=== PATIENT | male | born 1970 | race American Indian/Alaskan Native ===

== ENCOUNTER 2020-11-02 10:38 | Inpatient (IN) | payer SELFPAY ==
[2020-11-02] MEDS ORDERED: ACETAMINOPHEN 325 MG TAB ONE (11:24)
--- NOTE | 2020-11-02 11:24 | Event Note ---
ED Screening Note ED Screening Note: pt presents for generalized weakness, cough, diarrhea that began a week ago has associated SOB, fever, sweats, chills states he does have mucus production no vomiting no CP PMHx none no allergies to meds +sick contact during thanksgiving with COVID 19 no recent travel non smoker This initial assessment/diagnostic orders/clinical plan/treatment(s) is/are subject to change based on patients health status, clinical progression and re- assessment by fellow clinical providers in the ED. Further treatment and workup at subsequent clinical providers discretion. Patient/guardian urged not to elope from the ED as their condition may be serious if not clinically assessed and managed. Initial orders include: hypoxia, febrile code sepsis initiated
[2020-11-02] MEDS ORDERED: SODIUM CHLORIDE 0.9% 1000 ML IV SOLN IV ONE (11:25)
[2020-11-02] MEDS ORDERED: ACETAMINOPHEN 325 MG TAB PO ONE (11:25)
[2020-11-02] MEDS ORDERED: dexAMETHasone 4 MG/ML VIAL IV ONE ×2 (11:26→16:00)
[2020-11-02] MEDS ORDERED: cefTRIAXone/NS 2 GM/100 ML 2 GM/100 ML BAG IV ONE (11:26)
[2020-11-02] MEDS ORDERED: AZITHROMYCIN 500 MG in SODIUM CHLORIDE 0.9% 250ML 250 ML IV ONE (12:00)
--- NOTE | 2020-11-02 12:39 | XRay Report ---
CHEST 2 VIEWS INDICATION / CLINICAL INFORMATION: SOB, cough, fever. COMPARISON: None available. FINDINGS: SUPPORT DEVICES: None. HEART / MEDIASTINUM: No significant abnormality. LUNGS / PLEURA: There are bilateral airspace opacities in the mid lower lung zones suspicious for pne umonia. No pneumothorax. ADDITIONAL FINDINGS: No significant additional findings. IMPRESSION: 1. There are bilateral parenchymal opacities suspicious for pneumonia. Signer Name: Tobin Carmona MD Signed: 11/02/2020 12:34 PM Workstation Name: [id number]
[2020-11-02 12:55] LABS: Basophils % (Auto) 0.3 % (0.0-1.8); Hematocrit 46.7 % (35.5-45.6); Hemoglobin 15.9 gm/dl (11.8-15.2); Lymphocytes # (Auto) 0.7 K/mm3 (1.2-5.4); Lymphocytes % (Auto) 10.8 % (13.4-35.0); Mean Corpuscular HGB Conc 34 % (32-34); Mean Corpuscular Volume 87 fl (84-94); Monocytes # (Auto) 0.3 K/mm3 (0.0-0.8); Monocytes % (Auto) 4.6 % (0.0-7.3); Platelet Count 215 K/mm3 (140-440); Red Blood Count 5.36 M/mm3 (3.65-5.03); Red Cell Distribution Width 13.6 % (13.2-15.2)
--- NOTE | 2020-11-02 13:09 | Emergency Department Report ---
HPI - General Chief Complaint: Dyspnea/Respdistress Time Seen by Provider: 11/02/20 11:23 - HPI HPI: Room 25 The patient is a 50-year-old male present with a chief complaint of weakness and shortness of breath. The patient states for approximately 1 week he has had for 2 diarrhea and dyspnea on exertion. Patient admits to cough with greenish- yellow sputum. Patient admits to subjective fever. Patient denies nausea vomiting. The patient states he lost his sense of taste and smell approximately 1 week ago but it resolved ED Past Medical Hx - Past Medical History Previous Medical History?: No - Surgical History Past Surgical History?: No - Family History Family history: no significant - Social History Smoking Status: Never Smoker Substance Use Type: None (Denies illicit drug use), Alcohol (Occasional) ED Review of Systems ROS: Stated complaint: SOB,WEAKNESS Other details as noted in HPI Constitutional: fever Eyes: denies: eye pain ENT: denies: throat pain Respiratory: cough, SOB with exertion Cardiovascular: dyspnea on exertion Endocrine: no symptoms reported Gastrointestinal: diarrhea. denies: nausea, vomiting Genitourinary: denies: dysuria Musculoskeletal: denies: back pain Neurological: denies: headache Physical Exam - Physical Exam Vital Signs: Vital Signs 11/02/20 11:19 Temperature 102.1 F H Pulse Rate 92 H Respiratory 24 Rate Blood Pressure 138/73 [Right] O2 Sat by Pulse 91 Oximetry Physical Exam: GENERAL: The patient is well-developed well-nourished male lying on stretcher not appearing to be in acute distress. [] HEENT: Normocephalic. Atraumatic. Extraocular motions are intact. Patient has moist mucous membranes. NECK: Supple. Trachea midline CHEST/LUNGS: Occasional faint crackle at the right base. There is no respiratory distress noted. HEART/CARDIOVASCULAR: Regular. There is no tachycardia. There is no gallop rub or murmur. ABDOMEN: Abdomen is soft, nontender. Patient has normal bowel sounds. There is no abdominal distention. SKIN: There is no rash. There is no edema. There is no diaphoresis. NEURO: The patient is awake, alert, and oriented. The patient is cooperative. The patient has normal speech MUSCULOSKELETAL: There is no evidence of acute injury. ED Course Vital Signs 11/02/20 11:19 Temperature 102.1 F H Pulse Rate 92 H Respiratory 24 Rate Blood Pressure 138/73 [Right] O2 Sat by Pulse 91 Oximetry ED Medical Decision Making - Lab Data Result diagrams: 11/02/20 11:55 11/02/20 11:55 Laboratory Tests 11/02/20 11/02/20 11/02/20 11:55 11:55 11:55 WBC 6.8 RBC 5.36 H Hgb 15.9 H Hct 46.7 H MCV 87 MCH 30 MCHC 34 RDW 13.6 Plt Count 215 Lymph % (Auto) 10.8 L [place] % (Auto) 4.6 Eos % (Auto) 0.0 Baso % (Auto) 0.3 Lymph # (Auto) 0.7 L [place] # (Auto) 0.3 Eos # (Auto) 0.0 Baso # (Auto) 0.0 Seg Neutrophils % 84.3 H Seg Neutrophils # 5.7 D-Dimer ABG pH ABG pCO2 ABG pO2 ABG HCO3 ABG O2 Saturation ABG O2 Content ABG Base Excess ABG Hemoglobin ABG Carboxyhemoglobin ABG Methemoglobin Oxyhemoglobin FiO2 Sodium 135 L Potassium 4.0 Chloride 99.7 Carbon Dioxide 23 Anion Gap 16 BUN 9 Creatinine 1.0 Estimated GFR > 60 BUN/Creatinine Ratio 9 Glucose 100 Lactic Acid 0.90 Calcium 8.9 Ferritin Total Bilirubin 0.90 AST 368 H ALT 526 H Alkaline Phosphatase 128 Lactate Dehydrogenase 768 H C-Reactive Protein 19.00 H Total Protein 8.0 Albumin 3.8 L Albumin/Globulin Ratio 0.9 Procalcitonin 11/02/20 11/02/20 11/02/20 11:55 11:55 11:55 WBC RBC Hgb Hct MCV MCH MCHC RDW Plt Count Lymph % (Auto) [place] % (Auto) Eos % (Auto) Baso % (Auto) Lymph # (Auto) [place] # (Auto) Eos # (Auto) Baso # (Auto) Seg Neutrophils % Seg Neutrophils # D-Dimer 811.49 H ABG pH ABG pCO2 ABG pO2 ABG HCO3 ABG O2 Saturation ABG O2 Content ABG Base Excess ABG Hemoglobin ABG Carboxyhemoglobin ABG Methemoglobin Oxyhemoglobin FiO2 Sodium Potassium Chloride Carbon Dioxide Anion Gap BUN Creatinine Estimated GFR BUN/Creatinine Ratio Glucose Lactic Acid Calcium Ferritin > 2000.0 H Total Bilirubin AST ALT Alkaline Phosphatase Lactate Dehydrogenase C-Reactive Protein Total Protein Albumin Albumin/Globulin Ratio Procalcitonin 0.27 11/02/20 13:25 WBC RBC Hgb Hct MCV MCH MCHC RDW Plt Count Lymph % (Auto) [place] % (Auto) Eos % (Auto) Baso % (Auto) Lymph # (Auto) [place] # (Auto) Eos # (Auto) Baso # (Auto) Seg Neutrophils % Seg Neutrophils # D-Dimer ABG pH 7.443 ABG pCO2 36.7 ABG pO2 98.7 H ABG HCO3 24.5 ABG O2 Saturation 97.6 ABG O2 Content 20.8 ABG Base Excess 0.8 ABG Hemoglobin 15.4 ABG Carboxyhemoglobin 1.4 ABG Methemoglobin 0.7 Oxyhemoglobin 95.6 FiO2 32 Sodium Potassium Chloride Carbon Dioxide Anion Gap BUN Creatinine Estimated GFR BUN/Creatinine Ratio Glucose Lactic Acid Calcium Ferritin Total Bilirubin AST ALT Alkaline Phosphatase Lactate Dehydrogenase C-Reactive Protein Total Protein Albumin Albumin/Globulin Ratio Procalcitonin - EKG Data -: EKG Interpreted by Me EKG shows normal: sinus rhythm Rate: normal - EKG Data When compared to previous EKG there are: previous EKG unavailable Interpretation: nonspecific ST-T wave mere (T wave inversion in lead III) - Radiology Data Radiology results: report reviewed (Chest x-ray), image reviewed (Chest x-ray) interpreted by me: Chest x-ray-right lower lobe infiltrate Findings [address] [address] XRay Report Signed Patient: HILARY PEREYRA MR#: [id number] : 1970 Acct:[id number] Age/Sex: 50 / M ADM Date: 11/02/20 Loc: ED Attending Dr: Ordering Physician: MARTIN MUNOZ Date of Service: 11/02/20 Procedure(s): XR chest routine 2V Accession Number(s): [id number] cc: MARTIN MUNOZ Fluoro Time In Minutes: CHEST 2 VIEWS INDICATION / CLINICAL INFORMATION: SOB, cough, fever. COMPARISON: None available. FINDINGS: SUPPORT DEVICES: None. HEART / MEDIASTINUM: No significant abnormality. LUNGS / PLEURA: There are bilateral airspace opacities in the mid lower lung zones suspicious for pneumonia. No pneumothorax. ADDITIONAL FINDINGS: No significant additional findings. IMPRESSION: 1. There are bilateral parenchymal opacities suspicious for pneumonia. Signer Name: Tobin Carmona MD Signed: 11/02/2020 12:34 PM Workstation Name: [id number] Transcribed By: SS Dictated By: Tobin Carmona MD Electronically Authenticated By: Tobin Carmona MD Signed Date/Time: 11/02/20 1234 DD/ 1234 TD/TT: - Differential Diagnosis Pneumonia, COVID-19, hypoxia Critical care attestation.: If time is entered above; I have spent that time in minutes in the direct care of this critically ill patient, excluding procedure time. ED Disposition Clinical Impression: Pneumonia, Hypoxia, Suspected COVID-19 virus infection Disposition: DC-09 OP ADMIT IP TO THIS HOSP Is pt being admited?: Yes Does the pt Need Aspirin: No Condition: Stable Instructions: Bacterial Pneumonia (ED) Time of Disposition: 14:12 (Hospitalist paged)
[2020-11-02 13:16] LABS: Alanine Aminotransferase 526 units/L (7-56); Albumin 3.8 g/dL (3.9-5); BUN/Creatinine Ratio 9; Blood Urea Nitrogen 9 mg/dL (9-20); Calcium 8.9 mg/dL (8.4-10.2); Hemolysis Index 78
[2020-11-02] MEDS ORDERED: SODIUM CHLORIDE 0.9% 500 ML 500 ML ONE (13:35)
[2020-11-02] MEDS ORDERED: SODIUM CHLORIDE 0.9% 1000 ML 3,000 ML ONE (13:35)
[2020-11-02 13:46] LABS: ABG Base Excess 0.8 mmol/L (-2.0-3.0); ABG HCO3 24.5 mmol/L (20.0-26.0); ABG Methemoglobin 0.7 % (0.0-1.5); ABG Oxygen Saturation 97.6 % (95.0-99.0); ABG PCO2 36.7 mm Hg; ABG PH 7.443 pH Units (7.350-7.450); ABG PO2 98.7 mm Hg (80.0-90.0)
[2020-11-02 16:56] LABS: Bilirubin,Urine NEG (Negative); Blood,Urine MOD (Negative); Color,Urine Amber (Yellow); Mucus,Urine FEW /HPF
--- NOTE | 2020-11-03 01:07 | History and Physical Report ---
History of Present Illness Date of examination: 11/02/20 Date of admission: 11/02/20 14:15 Chief complaint: Shortness of breath for 1 week Diarrhea for 3 days History of present illness: 50-year-old male presents with chief complaint of weakness and shortness of bea th for 1 week. Patient also has cough productive of yellow sputum. Fever is subjective. Denies nausea or vomiting. Has loss of taste and smell approximately 1 week ago but it is better now. Patient also has diarrhea for 2 days. Nearly resolved now. Exposure to coronavirus present. No significant past medical history. - Past Medical History Previous Medical History?: No - Surgical History Past Surgical History?: No - Family History Family history: no significant - Social History Smoking Status: Never Smoker Substance Use Type: None (Denies illicit drug use), Alcohol (Occasional) Review of Systems ROS: Stated complaint: SOB,WEAKNESS Other details as noted in HPI Constitutional: fever Eyes: denies: eye pain ENT: denies: throat pain Respiratory: cough, SOB with exertion Cardiovascular: dyspnea on exertion Endocrine: no symptoms reported Gastrointestinal: diarrhea. denies: nausea, vomiting Genitourinary: denies: dysuria Musculoskeletal: denies: back pain Neurological: denies: headache Medications and Allergies Allergies Allergy/AdvReac Type Severity Reaction Status Date / Time No Known Allergies Allergy Unverified 11/02/20 11:19 Exam - Constitutional Vitals: Temp Pulse Resp BP Pulse Ox 102.4 F H 83 18 152/57 95 11/02/20 23:32 11/02/20 23:32 11/02/20 23:32 11/02/20 23:32 11/02/20 23:37 General appearance: Present: no acute distress, well-nourished - EENT Eyes: Present: PERRL ENT: hearing intact, clear oral mucosa - Neck Neck: Present: supple, normal ROM - Respiratory Respiratory effort: normal Respiratory: bilateral: CTA - Cardiovascular Heart rate: 78 Rhythm: regular Heart Sounds: Present: S1 & S2. Absent: rub, click - Extremities Extremities: no ischemia, pulses intact, pulses symmetrical, No edema Peripheral Pulses: within normal limits - Abdominal General gastrointestinal: Present: soft, non-tender, non-distended, normal bowel sounds Male genitourinary: Present: normal - Rectal Rectal Exam: deferred - Integumentary Integumentary: Present: clear, warm, dry - Musculoskeletal Musculoskeletal: gait normal, strength equal bilaterally - Psychiatric Psychiatric: appropriate mood/affect, intact judgment & insight - Neurologic Neurologic: CNII-XII intact, moves all extremities - Allied Health Allied health notes reviewed: nursing, case management Results - Labs CBC & Chem 7: 11/02/20 11:55 11/02/20 11:55 Labs: Laboratory Last Values WBC 6.8 K/mm3 (4.5-11.0) 11/02/20 11:55 RBC 5.36 M/mm3 (3.65-5.03) H 11/02/20 11:55 Hgb 15.9 gm/dl (11.8-15.2) H 11/02/20 11:55 Hct 46.7 % (35.5-45.6) H 11/02/20 11:55 MCV 87 fl (84-94) 11/02/20 11:55 MCH 30 pg (28-32) 11/02/20 11:55 MCHC 34 % (32-34) 11/02/20 11:55 RDW 13.6 % (13.2-15.2) 11/02/20 11:55 Plt Count 215 K/mm3 (140-440) 11/02/20 11:55 Lymph % (Auto) 10.8 % (13.4-35.0) L 11/02/20 11:55 [place] % (Auto) 4.6 % (0.0-7.3) 11/02/20 11:55 Eos % (Auto) 0.0 % (0.0-4.3) 11/02/20 11:55 Baso % (Auto) 0.3 % (0.0-1.8) 11/02/20 11:55 Lymph # (Auto) 0.7 K/mm3 (1.2-5.4) L 11/02/20 11:55 [place] # (Auto) 0.3 K/mm3 (0.0-0.8) 11/02/20 11:55 Eos # (Auto) 0.0 K/mm3 (0.0-0.4) 11/02/20 11:55 Baso # (Auto) 0.0 K/mm3 (0.0-0.1) 11/02/20 11:55 Seg Neutrophils % 84.3 % (40.0-70.0) H 11/02/20 11:55 Seg Neutrophils # 5.7 K/mm3 (1.8-7.7) 11/02/20 11:55 D-Dimer 811.49 ng/mlDDU (0-234) H 11/02/20 11:55 ABG pH 7.443 pH Units (7.350-7.450) 11/02/20 13:25 ABG pCO2 36.7 mm Hg 11/02/20 13:25 ABG pO2 98.7 mm Hg (80.0-90.0) H 11/02/20 13:25 ABG HCO3 24.5 mmol/L (20.0-26.0) 11/02/20 13:25 ABG O2 Saturation 97.6 % (95.0-99.0) 11/02/20 13:25 ABG O2 Content 20.8 (0.0-44) 11/02/20 13:25 ABG Base Excess 0.8 mmol/L (-2.0-3.0) 11/02/20 13:25 ABG Hemoglobin 15.4 gm/dl (14.0-18.0) 11/02/20 13:25 ABG Carboxyhemoglobin 1.4 % (0.0-5.0) 11/02/20 13:25 ABG Methemoglobin 0.7 % (0.0-1.5) 11/02/20 13:25 Oxyhemoglobin 95.6 % (95.0-99.0) 11/02/20 13:25 FiO2 32 % 11/02/20 13:25 Sodium 135 mmol/L (137-145) L 11/02/20 11:55 Potassium 4.0 mmol/L (3.6-5.0) 11/02/20 11:55 Chloride 99.7 mmol/L (98-107) 11/02/20 11:55 Carbon Dioxide 23 mmol/L (22-30) 11/02/20 11:55 Anion Gap 16 mmol/L 11/02/20 11:55 BUN 9 mg/dL (9-20) 11/02/20 11:55 Creatinine 1.0 mg/dL (0.8-1.3) 11/02/20 11:55 Estimated GFR > 60 ml/min 11/02/20 11:55 BUN/Creatinine Ratio 9 % 11/02/20 11:55 Glucose 100 mg/dL (75-100) 11/02/20 11:55 Lactic Acid 0.90 mmol/L (0.7-2.0) 11/02/20 14:35 Calcium 8.9 mg/dL (8.4-10.2) 11/02/20 11:55 Ferritin > 2000.0 ng/mL (30.0-300.0) H 11/02/20 11:55 Total Bilirubin 0.90 mg/dL (0.1-1.2) 11/02/20 11:55 AST 368 units/L (5-40) H 11/02/20 11:55 ALT 526 units/L (7-56) H 11/02/20 11:55 Alkaline Phosphatase 128 units/L (35-129) 11/02/20 11:55 Lactate Dehydrogenase 768 units/L (91-180) H 11/02/20 11:55 C-Reactive Protein 19.00 mg/dL (0.00-1.30) H 11/02/20 11:55 Total Protein 8.0 g/dL (6.3-8.2) 11/02/20 11:55 Albumin 3.8 g/dL (3.9-5) L 11/02/20 11:55 Albumin/Globulin Ratio 0.9 % 11/02/20 11:55 Procalcitonin 0.27 ng/mL (<0.15) 11/02/20 11:55 Urine Color Pearl (Yellow) 11/02/20 Unknown Urine Turbidity Clear (Clear) 11/02/20 Unknown Urine pH 6.0 (5.0-7.0) 11/02/20 Unknown Ur Specific [place] 1.017 (1.003-1.030) 11/02/20 Unknown Urine Protein 100 mg/dl mg/dL (Negative) 11/02/20 Unknown Urine Glucose (UA) Neg mg/dL (Negative) 11/02/20 Unknown Urine Ketones Neg mg/dL (Negative) 11/02/20 Unknown Urine Blood Mod (Negative) 11/02/20 Unknown Urine Nitrite Neg (Negative) 11/02/20 Unknown Urine Bilirubin Neg (Negative) 11/02/20 Unknown Urine Urobilinogen 4.0 mg/dL (<2.0) 11/02/20 Unknown Ur Leukocyte Esterase Neg (Negative) 11/02/20 Unknown Urine WBC (Auto) 5.0 /HPF (0.0-6.0) 11/02/20 Unknown Urine RBC (Auto) 2.0 /HPF (0.0-6.0) 11/02/20 Unknown Urine Mucus Few /HPF 11/02/20 Unknown Short CBC 11/02/20 Range/Units 11:55 WBC 6.8 (4.5-11.0) K/mm3 Hgb 15.9 H (11.8-15.2) gm/dl Hct 46.7 H (35.5-45.6) % Plt Count 215 (140-440) K/mm3 BMP 11/02/20 11:55 Sodium 135 L Potassium 4.0 Chloride 99.7 Carbon Dioxide 23 BUN 9 Creatinine 1.0 Glucose 100 Calcium 8.9 Liver Function 11/02/20 Range/Units 11:55 Total Bilirubin 0.90 (0.1-1.2) mg/dL AST 368 H (5-40) units/L ALT 526 H (7-56) units/L Alkaline Phosphatase 128 (35-129) units/L Albumin 3.8 L (3.9-5) g/dL Urine 11/02/20 Range/Units Unknown Urine Color Pearl (Yellow) Urine pH 6.0 (5.0-7.0) Ur Specific [place] 1.017 (1.003-1.030) Urine Protein 100 mg/dl (Negative) mg/dL Urine Glucose (UA) Neg (Negative) mg/dL Microbiology: Microbiology 11/02/20 11:55 Peripheral/Venous Blood Culture - Preliminary Culture in Progress 11/02/20 11:55 Peripheral/Venous Blood Culture - Preliminary Culture in Progress - Imaging and Cardiology Imaging and Cardiology: Chest x-ray IMPRESSION: 1. There are bilateral parenchymal opacities suspicious for pneumonia. [place]/IV: Voiding Method Toilet IV Catheter Type [Left] Peripheral IV Assessment and Plan Advance Directives: Yes (Full code) VTE prophylaxis?: Chemical Plan of care discussed with patient/family: Yes - Patient Problems (1) Acute respiratory failure with hypoxia Current Visit: Yes Status: Acute Plan to address problem: Patient has low oxygen levels on room air Continue oxygen supplementation as necessary Monitor closely (2) Suspected COVID-19 virus infection Current Visit: Yes Status: Acute Plan to address problem: Coronavirus PCR ordered Inflammatory markers are requested ID consult requested for possible remdesivir therapy Patient initiated on IV Decadron (3) Bilateral pneumonia Current Visit: Yes Status: Acute Qualifiers: Pneumonia type: due to unspecified organism Plan to address problem: Patient being treated as community-acquired pneumonia Patient on Zithromax and Rocephin IV Decadron 8 mg every 24 hours (4) Polycythemia due to fall in plasma volume Current Visit: Yes Status: Acute Plan to address problem: Increase oral fluids (5) DVT prophylaxis Current Visit: Yes Status: Acute Plan to address problem: Patient on Lovenox and GI prophylaxis
[2020-11-03] MEDS ORDERED: HYDROmorphone 1 MG/1 ML INJ IV PRN (01:29)
[2020-11-03] MEDS ORDERED: METOCLOPRAMIDE 10 MG/2 ML INJ IV PRN (01:29)
[2020-11-03] MEDS ORDERED: ACETAMINOPHEN 325 MG TAB PO PRN (01:29)
[2020-11-03] MEDS ORDERED: oxyCODONE /ACETAMINOPHEN 5-325MG TAB PO PRN (01:29)
[2020-11-03] MEDS ORDERED: ONDANSETRON 4 MG/2 ML INJ IV PRN (01:29)
[2020-11-03] MEDS: FAMOTIDINE 20 MG TAB PO SCH ×2 (09:38→22:54)
[2020-11-03] MEDS: CHOLECALCIFEROL (VIT D3) 5,000 UNIT TAB PO SCH (09:41)
[2020-11-03] MEDS ORDERED: cefTRIAXone/NS 2 GM/100 ML 2 GM/100 ML BAG IV SCH (10:00)
[2020-11-03] MEDS ORDERED: AZITHROMYCIN 500 MG in SODIUM CHLORIDE 0.9% 250ML 250 ML IV SCH (10:00)
[2020-11-03] MEDS: DEXAMETHASONE 2 MG TAB PO SCH ×2 (13:56→22:54)
--- NOTE | 2020-11-03 14:27 | Consultation ---
History of Present Illness - Reason for Consult Consult date: 11/03/20 COVID-19 Requesting physician: JARON JULIAN - History of Present Illness 51 years old male without any significant medical history, admitted on 11/02/2020 secondary to a week history of generalized weakness, cough with yellowish sputum production, intermittent diarrhea, loss of smell and taste and shortness of breath. Patient had recent exposure to COVID-19. On arrival, temperature 102, HR 92, RR 29, O2 sat 91%, BP 138/73. Initial WBC 6.8. Platelets 215. D-dimer 811. Ferritin> 2000. AST 368. ALT 526. CRP 19. Procalcitonin 0.2. Urinalysis negative. Chest x-ray shows bilateral airspace disease. Review of Systems: reviewed ED and H&P notes. Deferred to prevent COVID-19 transmission. Medications and Allergies Allergies Allergy/AdvReac Type Severity Reaction Status Date / Time No Known Allergies Allergy Unverified 11/02/20 11:19 Active Meds: Active Medications Acetaminophen (Acetaminophen 325 Mg Tab) 650 mg PO Q4H PRN PRN Reason: Pain MILD(1-3)/Fever >100.5/KRUGER Cholecalciferol (Cholecalciferol (Vit D3) 5,000 Unit Tab) 5,000 unit PO QDAY [facility] Last Admin: 11/03/20 09:41 Dose: 5,000 unit Documented by: Dexamethasone (Dexamethasone 2 Mg Tab) 2 mg PO Q8HR [facility] Last Admin: 11/03/20 13:56 Dose: 2 mg Documented by: Enoxaparin Sodium (Enoxaparin 40 Mg/0.4 Ml Inj) 40 mg SUB-Q QDAY@2200 [facility]; Protocol Famotidine (Famotidine 20 Mg Tab) 20 mg PO BID [facility] Last Admin: 11/03/20 09:38 Dose: 20 mg Documented by: Hydromorphone HCl (Hydromorphone 1 Mg/1 Ml Inj) 0.5 mg IV Q3H PRN PRN Reason: Pain , Severe (7-10) Azithromycin 500 mg/ Sodium (Chloride) 250 mls @ 250 mls/hr IV Q24HR [facility]; Protocol Last Admin: 11/03/20 09:40 Dose: 250 mls/hr Documented by: Ceftriaxone Sodium (Rocephin/Ns 2 Gm/100 Ml) 2 gm in 100 mls @ 200 mls/hr IV Q24HR [facility]; Protocol Last Admin: 11/03/20 09:38 Dose: 200 mls/hr Documented by: Metoclopramide HCl (Metoclopramide 10 Mg/2 Ml Inj) 10 mg IV Q6H PRN PRN Reason: Nausea And Vomiting Ondansetron HCl (Ondansetron 4 Mg/2 Ml Inj) 4 mg IV Q8H PRN PRN Reason: Nausea And Vomiting Oxycodone/Acetaminophen (Oxycodone /Acetaminophen 5-325mg Tab) 1 tab PO Q6H PRN PRN Reason: Pain, Moderate (4-6) Sodium Chloride (Sodium Chloride 0.9% 10 Ml Flush Syringe) 10 ml IV BID [facility] Last Admin: 11/03/20 09:40 Dose: 10 ml Documented by: Sodium Chloride (Sodium Chloride 0.9% 10 Ml Flush Syringe) 10 ml IV PRN PRN PRN Reason: LINE FLUSH Physical Examination - Physical Exam Narrative exam: Physical Exam: reviewed ED and hospitalist notes. Deferred to prevent COVID-19 transmission. - Constitutional Vitals: Vital Signs Temp Pulse Resp BP Pulse Ox 97.7 F 67 18 146/80 97 11/03/20 03:59 11/03/20 03:59 11/03/20 03:59 11/03/20 03:59 11/03/20 03:59 Temperature -Last 24 Hours Temperature 97.7 F Temperature 102.4 F Results - Labs CBC & Chem 7: 11/02/20 11:55 11/02/20 11:55 Assessment and Plan Cultures: Blood culture 11/02/2020 pending SARS CoV2 PCR pending Assessment: 51 years old male without any significant medical history, admitted on 11/02/2020 secondary to a week history of generalized weakness, cough with yellowish sputum production, intermittent diarrhea, loss of smell and taste and shortness of breath: #Acute sepsis: Present on admission with fever, tachycardia, hypoxia; likely secondary to bilateral pneumonia. #Bilateral pneumonia: Likely secondary to COVID-19, patient with recent exposure to COVID-19. PCR pending. Inflammatory markers elevated, ferritin> 2000, D- dimer 811. #Acute hypoxia: Initial sats dropped to 91%, patient currently on 2 L nasal cannula. #Transaminitis: Likely secondary to sepsis, possibly secondary to COVID-19. AST 368, ALT 526. LFTs level usually higher than typical Covid-related transaminitis. #Acute diarrhea: Possible secondary to COVID-19. Recommendations: -Follow-up SARS-CoV-2 PCR -Start Dexamethasone 6 mg IV/PO daily for 10 days -If SARS-CoV-2 PCR is positive please start remdesivir total 5 days -Monitor inflammatory markers - ferritin, Ddimer, CRP, LDH -Stop ceftriaxone and azithromycin, procalcitonin <0.25 ng/mL -Continue anticoagulation per System Protocol -Obtain right upper quadrant ultrasound in light of high LFTs. -Obtain venous ultrasound rule out DVTs All laboratory, cultures and imaging were reviewed. Will follow Hortencia Olsen MD Infectious Diseases [employer] [facility] M [phone] O [phone]
--- NOTE | 2020-11-03 17:30 | Progress Note ---
Assessment and Plan -- Acute respiratory failure with hypoxia from COVID 19 PNA Patient has low oxygen levels on room air Continue oxygen supplementation as necessary Monitor closely -- COVID-19 virus infection Coronavirus PCR ordered and positive follow Inflammatory markers ID consult, ordered for remdesivir therapy Patient initiated on IV Decadron Positive for anticovid antibody - no need for convalescent plasma -- Bilateral pneumonia stop Zithromax and Rocephin as procalcitonin normal treat for COVID 19 IV Decadron 8 mg every 24 hours -- Polycythemia due to fall in plasma volume Increase oral fluids -- DVT prophylaxis Patient on Lovenox and GI prophylaxis Brief History: 51 years old male without any significant medical history, admitted on 11/02/2020 secondary to a week history of generalized weakness, cough with yellowish sputum production, intermittent diarrhea, loss of smell and taste and shortness of breath. Patient had recent exposure to COVID-19. On arrival, Chest x-ray shows bilateral airspace disease. COVID 19 test positive. 11/03: Postive for covid19. follow Inflammatory markers, ID consulted, ordered for remdesivir therapy. Patient initiated on IV Decadron. Subjective Date of service: 11/03/20 Interval history: Patient seen and examined positive for COVID 19 c/o SOB on exertion AND COUGH, on 2L N/C Denies any chest pain Objective - Constitutional General appearance: Present: no acute distress, obese - EENT Eyes: PERRL, EOM intact ENT: hearing intact, clear oral mucosa Ears: bilateral: normal - Neck Neck: supple, normal ROM - Respiratory Respiratory effort: normal Respiratory: bilateral: rales - Breasts Breasts: normal - Cardiovascular Rhythm: regular Heart Sounds: Present: S1 & S2. Absent: gallop, rub Extremities: pulses intact, No edema, normal color, Full ROM - Gastrointestinal General gastrointestinal: Present: soft, non-tender, non-distended, normal bowel sounds - Integumentary Integumentary: clear, warm, dry - Musculoskeletal Musculoskeletal: 1, strength equal bilaterally - Neurologic Neurologic: moves all extremities - Psychiatric Psychiatric: memory intact, appropriate mood/affect, intact judgment & insight - Labs CBC & Chem 7: 11/02/20 11:55 11/02/20 11:55 Labs: Abnormal lab results 11/03/20 Range/Units Unknown Coronavirus (PCR) Positive A (Negative) - Imaging and cardiology Chest x-ray: report reviewed
[2020-11-03] MEDS ORDERED: REMDESIVIR 200 MG in SODIUM CHLORIDE 0.9% 250ML 250 ML IV ONE ×2 (18:00→20:00)
[2020-11-03] MEDS ORDERED: SODIUM CHLORIDE 0.9% 50 ML IVPB IV SCH (18:00)
[2020-11-03] MEDS ORDERED: REMDESIVIR 100 MG VIAL IV ONE (20:00)
[2020-11-03] MEDS: SODIUM CHLORIDE 0.9% 50 ML IVPB IV SCH ×2 (22:53→22:55)
[2020-11-03] MEDS: ASCORBIC ACID 500 MG TAB PO SCH (22:54)
[2020-11-03] MEDS: ZINC SULFATE 220 MG CAP PO SCH (22:54)
[2020-11-03] MEDS: ENOXAPARIN 40 MG/0.4 ML INJ SUB-Q SCH (22:54)
[2020-11-04] MEDS: DEXAMETHASONE 2 MG TAB PO SCH ×3 (05:09→21:39)
[2020-11-04 06:32] LABS: Basophils % (Auto) 0.2 % (0.0-1.8); Eosinophils % (Auto) 0.1 % (0.0-4.3); Hematocrit 40.3 % (35.5-45.6); Hemoglobin 13.5 gm/dl (11.8-15.2); Lymphocytes # (Auto) 0.6 K/mm3 (1.2-5.4); Lymphocytes % (Auto) 10.2 % (13.4-35.0); Mean Corpuscular HGB Conc 33 % (32-34); Mean Corpuscular Volume 87 fl (84-94); Monocytes # (Auto) 0.3 K/mm3 (0.0-0.8); Monocytes % (Auto) 5.1 % (0.0-7.3); Platelet Count 249 K/mm3 (140-440); Red Blood Count 4.62 M/mm3 (3.65-5.03); Red Cell Distribution Width 13.7 % (13.2-15.2)
[2020-11-04 06:54] LABS: Alanine Aminotransferase 254 units/L (7-56); Albumin 3.2 g/dL (3.9-5); BUN/Creatinine Ratio 11; Blood Urea Nitrogen 11 mg/dL (9-20); Calcium 8.5 mg/dL (8.4-10.2); Hemolysis Index 5
--- NOTE | 2020-11-04 09:23 | Progress Note ---
Assessment and Plan Cultures: Blood culture 11/02/2020 pending SARS CoV2 PCR positive SARS CoV2 IgG positive Assessment: 51 years old male without any significant medical history, admitted on 11/02/2020 secondary to a week history of generalized weakness, cough with yellowish sputum production, intermittent diarrhea, loss of smell and taste and shortness of breath: #Acute sepsis: Present on admission with fever, tachycardia, hypoxia; likely secondary to bilateral pneumonia. #Severe COVID pneumonia: patient with recent exposure to COVID-19. Inflammatory markers elevated, ferritin> 2000, D-dimer 811. #Acute hypoxia: Initial sats dropped to 91%, patient currently on 2 L nasal cannula. #Transaminitis: Likely secondary to sepsis, possibly secondary to COVID-19. AST 368, ALT 526. LFTs level usually higher than typical Covid-related transaminitis. Improving. #Acute diarrhea: Possible secondary to COVID-19. Recommendations: -Continue Dexamethasone 6 mg IV/PO daily for 10 days D2 of 10 -Continue remdesivir total 5 days -Monitor inflammatory markers - ferritin, Ddimer, CRP, LDH today -No indication for COVID convalescence plasma as pt is seropositive -Continue anticoagulation per System Protocol -Obtain right upper quadrant ultrasound in light of high LFTs- pending -Obtain venous ultrasound rule out DVTs - pending All laboratory, cultures and imaging were reviewed. Will follow Hortencia Olsen MD Infectious Diseases Certified [employer] [facility] ([facility]) M [phone] O [phone] Subjective Date of service: 11/04/20 Principal diagnosis: COVID Interval history: Remains on 2L Objective - Constitutional Vitals: Vital Signs Temp Pulse Resp BP Pulse Ox 97.9 F 71 16 141/75 96 11/04/20 05:16 11/04/20 05:16 11/04/20 05:16 11/04/20 05:16 11/04/20 05:16 Temperature -Last 24 Hours Temperature 97.9 F Temperature 97.9 F Temperature 102.5 F - Labs CBC & Chem 7: 11/04/20 05:53 11/04/20 05:53 Labs: Abnormal lab results 11/03/20 11/03/20 11/04/20 Range/Units 18:50 Unknown 05:53 Lymph % (Auto) 10.2 L (13.4-35.0) % Lymph # (Auto) 0.6 L (1.2-5.4) K/mm3 Seg Neutrophils % 84.4 H (40.0-70.0) % Sodium (137-145) mmol/L Glucose (75-100) mg/dL AST (5-40) units/L ALT (7-56) units/L Albumin (3.9-5) g/dL Coronavirus (PCR) Positive A (Negative) SARS-CoV-2 IgG Ab Reactive A (NonReactive) 11/04/20 Range/Units 05:53 Lymph % (Auto) (13.4-35.0) % Lymph # (Auto) (1.2-5.4) K/mm3 Seg Neutrophils % (40.0-70.0) % Sodium 136 L (137-145) mmol/L Glucose 104 H (75-100) mg/dL AST 83 H (5-40) units/L ALT 254 H (7-56) units/L Albumin 3.2 L (3.9-5) g/dL Coronavirus (PCR) (Negative) SARS-CoV-2 IgG Ab (NonReactive)
--- NOTE | 2020-11-04 09:57 | Progress Note ---
Assessment and Plan Acute respiratory failure with hypoxia from COVID 19 PNA continues to improve significantly expect discharge 1 to 2 days Continue oxygen supplementation as necessary Monitor closely -- COVID-19 virus infection Coronavirus PCR ordered and positive follow Inflammatory markers ID consult, remdesivir therapy Patient initiated on IV Decadron Positive for anticovid antibody - no need for convalescent plasma -- Bilateral pneumonia Antibiotics discontinued as procalcitonin normal treat for COVID 19 IV Decadron 8 mg every 24 hours will change to po -- Polycythemia due to fall in plasma volume Increase oral fluids -Continue Dexamethasone 6 mg IV/PO daily for 10 days -Continue remdesivir total 4 of 5 days -Monitor inflammatory markers - ferritin, Ddimer, CRP, LDH today -No indication for COVID convalescence plasma as pt is seropositive -Transaminases have returned to normal. -Obtain venous ultrasound rule out DVTs - pending Subjective Date of service: 11/04/20 Principal diagnosis: COVID Interval history: Patient breathing much better today. Currently on 3 L of oxygen. Patient can get up go to the bathroom but out coming extremely hypoxic. Patient would not able to do that 2 days ago. Plan will be tomorrow to start patient to get up and walk and see if he can tolerate home on 3 L of O2. Will anticipate discharge in the next 1 to 2 days. Objective - Constitutional Vitals: Vital Signs - 12hr 11/03/20 11/03/20 11/04/20 22:00 22:40 05:16 Temperature 97.9 F 97.9 F Pulse Rate 56 L 71 Pulse Rate [ 56 L Right Brachial] Respiratory 18 18 16 Rate Blood Pressure 140/66 141/75 O2 Sat by Pulse 98 98 96 Oximetry General appearance: Present: mild distress - EENT Eyes: PERRL, EOM intact ENT: hearing intact, clear oral mucosa Ears: bilateral: normal - Neck Neck: supple, normal ROM - Respiratory Respiratory effort: normal Respiratory: bilateral: CTA - Breasts Breasts: normal - Cardiovascular Rhythm: regular Heart Sounds: Present: S1 & S2. Absent: gallop, rub Extremities: pulses intact, No edema, normal color, Full ROM - Gastrointestinal General gastrointestinal: Present: soft, non-tender, non-distended, normal bowel sounds - Genitourinary Male genitourinary: normal - Integumentary Integumentary: clear, warm, dry - Musculoskeletal Musculoskeletal: 1, strength equal bilaterally - Neurologic Neurologic: moves all extremities - Psychiatric Psychiatric: memory intact, appropriate mood/affect, intact judgment & insight - Labs CBC & Chem 7: 11/04/20 05:53 11/04/20 13:47 Labs: Abnormal lab results 11/03/20 11/03/20 11/04/20 Range/Units 18:50 Unknown 05:53 Lymph % (Auto) 10.2 L (13.4-35.0) % Lymph # (Auto) 0.6 L (1.2-5.4) K/mm3 Seg Neutrophils % 84.4 H (40.0-70.0) % Sodium (137-145) mmol/L Glucose (75-100) mg/dL AST (5-40) units/L ALT (7-56) units/L Albumin (3.9-5) g/dL Coronavirus (PCR) Positive A (Negative) SARS-CoV-2 IgG Ab Reactive A (NonReactive) 11/04/20 Range/Units 05:53 Lymph % (Auto) (13.4-35.0) % Lymph # (Auto) (1.2-5.4) K/mm3 Seg Neutrophils % (40.0-70.0) % Sodium 136 L (137-145) mmol/L Glucose 104 H (75-100) mg/dL AST 83 H (5-40) units/L ALT 254 H (7-56) units/L Albumin 3.2 L (3.9-5) g/dL Coronavirus (PCR) (Negative) SARS-CoV-2 IgG Ab (NonReactive)
[2020-11-04] MEDS: ASCORBIC ACID 500 MG TAB PO SCH ×2 (10:33→21:40)
[2020-11-04] MEDS: CHOLECALCIFEROL (VIT D3) 5,000 UNIT TAB PO SCH (10:33)
[2020-11-04] MEDS: FAMOTIDINE 20 MG TAB PO SCH ×2 (10:33→21:40)
[2020-11-04] MEDS: ZINC SULFATE 220 MG CAP PO SCH ×2 (10:33→21:40)
[2020-11-04 15:27] LABS: BUN/Creatinine Ratio 12; Blood Urea Nitrogen 12 mg/dL (9-20); Calcium 8.4 mg/dL (8.4-10.2); Hemolysis Index 0
[2020-11-04] MEDS: guaiFENesin ER 600 MG TAB PO SCH (21:38)
[2020-11-04] MEDS: ENOXAPARIN 40 MG/0.4 ML INJ SUB-Q SCH (21:39)
[2020-11-04] MEDS: REMDESIVIR 100 MG in SODIUM CHLORIDE 0.9% 250ML 250 ML IV SCH (21:39)
[2020-11-04] MEDS: SODIUM CHLORIDE 0.9% 50 ML IVPB IV SCH (21:39)
[2020-11-05] MEDS: DEXAMETHASONE 2 MG TAB PO SCH ×3 (05:21→22:36)
--- NOTE | 2020-11-05 07:39 | Progress Note ---
Assessment and Plan Assessment and plan: Acute respiratory failure with hypoxia from COVID 19 PNA continues to improve significantly expect discharge 1 to 2 days Continue oxygen supplementation as necessary Monitor closely -- COVID-19 virus infection Coronavirus PCR ordered and positive follow Inflammatory markers ID consult, remdesivir therapy Patient initiated on IV Decadron Positive for anticovid antibody - no need for convalescent plasma -- Bilateral pneumonia Antibiotics discontinued as procalcitonin normal treat for COVID 19 IV Decadron 8 mg every 24 hours will change to po -- Polycythemia due to fall in plasma volume Increase oral fluids -Continue Dexamethasone 6 mg IV/PO daily for 10 days -Continue remdesivir total 2 of 5 days -Monitor inflammatory markers - ferritin, Ddimer, CRP, LDH today -No indication for COVID convalescence plasma as pt is seropositive -Transaminases have returned to normal. -Obtain venous ultrasound rule out DVTs - pending 11/05/2020 -Patient is on IV dexamethasone, remdesivir day 2 out of 5, patient is on intranasal oxygen, ID is following and recommend to get inflammatory markers, venous Doppler and right upper quadrant ultrasound -Patient is doing well he is on 3 L of intranasal oxygen. History Interval history: Patient was seen and evaluated at the bedside Patient is requiring 3 L of [place] oxygen Hospitalist Physical - Physical exam Narrative exam: Not in cardiopulmonary distress. The patient appeared well nourished and normally developed. Vital signs as documented. Head exam is unremarkable. No scleral icterus . Neck is without jugular venous distension, thyromegaly, or carotid bruits. Lungs are clear to auscultation. Cardiac exam reveals regular rate and Rhythm. Abdominal exam reveals normal bowel sounds, nontender, no organomegaly. Extremities are nonedematous and both femoral and pedal pulses are normal. PT ESCORT: Alert and oriented 3. No focal weakness. - Constitutional Vitals: Temp Pulse Resp BP Pulse Ox 98.7 F 60 20 136/75 88 11/05/20 04:54 11/05/20 04:54 11/05/20 04:54 11/05/20 04:54 11/05/20 04:54 General appearance: Present: mild distress Results - Labs CBC & Chem 7: 11/04/20 05:53 11/04/20 13:47 Labs: Laboratory Last Values WBC 6.4 K/mm3 (4.5-11.0) 11/04/20 05:53 RBC 4.62 M/mm3 (3.65-5.03) 11/04/20 05:53 Hgb 13.5 gm/dl (11.8-15.2) 11/04/20 05:53 Hct 40.3 % (35.5-45.6) D 11/04/20 05:53 MCV 87 fl (84-94) 11/04/20 05:53 MCH 29 pg (28-32) 11/04/20 05:53 MCHC 33 % (32-34) 11/04/20 05:53 RDW 13.7 % (13.2-15.2) 11/04/20 05:53 Plt Count 249 K/mm3 (140-440) 11/04/20 05:53 Lymph % (Auto) 10.2 % (13.4-35.0) L 11/04/20 05:53 [place] % (Auto) 5.1 % (0.0-7.3) 11/04/20 05:53 Eos % (Auto) 0.1 % (0.0-4.3) 11/04/20 05:53 Baso % (Auto) 0.2 % (0.0-1.8) 11/04/20 05:53 Lymph # (Auto) 0.6 K/mm3 (1.2-5.4) L 11/04/20 05:53 [place] # (Auto) 0.3 K/mm3 (0.0-0.8) 11/04/20 05:53 Eos # (Auto) 0.0 K/mm3 (0.0-0.4) 11/04/20 05:53 Baso # (Auto) 0.0 K/mm3 (0.0-0.1) 11/04/20 05:53 Seg Neutrophils % 84.4 % (40.0-70.0) H 11/04/20 05:53 Seg Neutrophils # 5.4 K/mm3 (1.8-7.7) 11/04/20 05:53 D-Dimer 811.49 ng/mlDDU (0-234) H 11/02/20 11:55 ABG pH 7.443 pH Units (7.350-7.450) 11/02/20 13:25 ABG pCO2 36.7 mm Hg 11/02/20 13:25 ABG pO2 98.7 mm Hg (80.0-90.0) H 11/02/20 13:25 ABG HCO3 24.5 mmol/L (20.0-26.0) 11/02/20 13:25 ABG O2 Saturation 97.6 % (95.0-99.0) 11/02/20 13:25 ABG O2 Content 20.8 (0.0-44) 11/02/20 13:25 ABG Base Excess 0.8 mmol/L (-2.0-3.0) 11/02/20 13:25 ABG Hemoglobin 15.4 gm/dl (14.0-18.0) 11/02/20 13:25 ABG Carboxyhemoglobin 1.4 % (0.0-5.0) 11/02/20 13:25 ABG Methemoglobin 0.7 % (0.0-1.5) 11/02/20 13:25 Oxyhemoglobin 95.6 % (95.0-99.0) 11/02/20 13:25 FiO2 32 % 11/02/20 13:25 Sodium 139 mmol/L (137-145) 11/04/20 13:47 Potassium 4.5 mmol/L (3.6-5.0) 11/04/20 13:47 Chloride 101.8 mmol/L (98-107) 11/04/20 13:47 Carbon Dioxide 29 mmol/L (22-30) 11/04/20 13:47 Anion Gap 13 mmol/L 11/04/20 13:47 BUN 12 mg/dL (9-20) 11/04/20 13:47 Creatinine 1.0 mg/dL (0.8-1.3) 11/04/20 13:47 Estimated GFR > 60 ml/min 11/04/20 13:47 BUN/Creatinine Ratio 12 % 11/04/20 13:47 Glucose 132 mg/dL (75-100) H 11/04/20 13:47 Hemoglobin A1c 5.9 % (4-6) 11/02/20 11:55 Lactic Acid 0.90 mmol/L (0.7-2.0) 11/02/20 14:35 Calcium 8.4 mg/dL (8.4-10.2) 11/04/20 13:47 Ferritin > 2000.0 ng/mL (30.0-300.0) H 11/02/20 11:55 Total Bilirubin 0.50 mg/dL (0.1-1.2) 11/04/20 05:53 AST 83 units/L (5-40) H 11/04/20 05:53 ALT 254 units/L (7-56) H 11/04/20 05:53 Alkaline Phosphatase 107 units/L (35-129) 11/04/20 05:53 Lactate Dehydrogenase 768 units/L (91-180) H 11/02/20 11:55 C-Reactive Protein 19.00 mg/dL (0.00-1.30) H 11/02/20 11:55 Total Protein 6.9 g/dL (6.3-8.2) 11/04/20 05:53 Albumin 3.2 g/dL (3.9-5) L 11/04/20 05:53 Albumin/Globulin Ratio 0.9 % 11/04/20 05:53 Procalcitonin 0.27 ng/mL (<0.15) 11/02/20 11:55 Urine Color Pearl (Yellow) 11/02/20 Unknown Urine Turbidity Clear (Clear) 11/02/20 Unknown Urine pH 6.0 (5.0-7.0) 11/02/20 Unknown Ur Specific [place] 1.017 (1.003-1.030) 11/02/20 Unknown Urine Protein 100 mg/dl mg/dL (Negative) 11/02/20 Unknown Urine Glucose (UA) Neg mg/dL (Negative) 11/02/20 Unknown Urine Ketones Neg mg/dL (Negative) 11/02/20 Unknown Urine Blood Mod (Negative) 11/02/20 Unknown Urine Nitrite Neg (Negative) 11/02/20 Unknown Urine Bilirubin Neg (Negative) 11/02/20 Unknown Urine Urobilinogen 4.0 mg/dL (<2.0) 11/02/20 Unknown Ur Leukocyte Esterase Neg (Negative) 11/02/20 Unknown Urine WBC (Auto) 5.0 /HPF (0.0-6.0) 11/02/20 Unknown Urine RBC (Auto) 2.0 /HPF (0.0-6.0) 11/02/20 Unknown Urine Mucus Few /HPF 11/02/20 Unknown Coronavirus (PCR) Positive (Negative) A 11/03/20 Unknown SARS-CoV-2 IgG Ab Reactive (NonReactive) A 11/03/20 18:50 Microbiology: Microbiology 11/02/20 11:55 Peripheral/Venous Blood Culture - Preliminary NO GROWTH AFTER 48 HOURS 11/02/20 11:55 Peripheral/Venous Blood Culture - Preliminary NO GROWTH AFTER 48 HOURS [place]/IV: Voiding Method Toilet IV Catheter Type [Left] Peripheral IV Active Medications - Current Medications Current Medications: Generic Name Dose Route Start Last Admin Trade Name Freq PRN Reason Stop Dose Admin Acetaminophen 650 mg 11/03/20 01:29 11/03/20 17:37 Acetaminophen 325 Mg Tab PO 650 mg Q4H PRN Administration Pain MILD(1-3)/Fever >100.5/KRUGER Ascorbic Acid 1,000 mg 11/03/20 22:00 11/04/20 21:40 Ascorbic Acid 500 Mg Tab PO 1,000 mg BID CHANDAN Administration Cholecalciferol 5,000 unit 11/03/20 10:00 11/04/20 10:33 Cholecalciferol (Vit D3) 5,000 Unit Tab PO 5,000 unit QDAY CHANDAN Administration Dexamethasone 2 mg 11/03/20 14:00 11/05/20 05:21 Dexamethasone 2 Mg Tab PO 2 mg Q8HR CHANDAN Administration Enoxaparin Sodium 40 mg 11/03/20 22:00 11/04/20 21:39 Enoxaparin 40 Mg/0.4 Ml Inj SUB-Q 40 mg QDAY@2200 CHANDAN Administration Protocol Famotidine 20 mg 11/03/20 10:00 11/04/20 21:40 Famotidine 20 Mg Tab PO 20 mg BID CHANDAN Administration Guaifenesin 600 mg 11/04/20 22:00 11/04/20 21:38 Guaifenesin Er 600 Mg Tab PO 600 mg BID CHANDAN Administration Hydromorphone HCl 0.5 mg 11/03/20 01:29 Hydromorphone 1 Mg/1 Ml Inj IV Q3H PRN Pain , Severe (7-10) REMDESIVIR 100 mg/ Sodium 250 mls @ 500 mls/hr 11/04/20 21:00 11/04/20 21:39 Chloride IV 11/07/20 21:29 500 mls/hr Q24HR@2100 CHANDAN Administration Metoclopramide HCl 10 mg 11/03/20 01:29 Metoclopramide 10 Mg/2 Ml Inj IV Q6H PRN Nausea And Vomiting Ondansetron HCl 4 mg 11/03/20 01:29 Ondansetron 4 Mg/2 Ml Inj IV Q8H PRN Nausea And Vomiting Oxycodone/Acetaminophen 1 tab 11/03/20 01:29 Oxycodone /Acetaminophen 5-325mg Tab PO Q6H PRN Pain, Moderate (4-6) Sodium Chloride 10 ml 11/03/20 10:00 11/04/20 21:40 Sodium Chloride 0.9% 10 Ml Flush Syringe IV 10 ml BID CHANDAN Administration Sodium Chloride 10 ml 11/03/20 01:29 Sodium Chloride 0.9% 10 Ml Flush Syringe IV PRN PRN LINE FLUSH Sodium Chloride 50 ml 11/03/20 20:00 11/04/20 21:39 Sodium Chloride 0.9% 50 Ml Ivpb IV 11/06/20 21:01 50 ml Q24HR@2100 CHANDAN Administration Zinc Sulfate 220 mg 11/03/20 22:00 11/04/20 21:40 Zinc Sulfate 220 Mg Cap PO 220 mg BID CHANDAN Administration
[2020-11-05] MEDS: ZINC SULFATE 220 MG CAP PO SCH ×2 (09:51→22:35)
[2020-11-05] MEDS: ASCORBIC ACID 500 MG TAB PO SCH ×2 (09:51→22:36)
[2020-11-05] MEDS: CHOLECALCIFEROL (VIT D3) 5,000 UNIT TAB PO SCH (09:51)
[2020-11-05] MEDS: guaiFENesin ER 600 MG TAB PO SCH ×2 (09:52→22:34)
[2020-11-05] MEDS: FAMOTIDINE 20 MG TAB PO SCH ×2 (09:52→22:35)
--- NOTE | 2020-11-05 13:36 | Progress Note ---
Assessment and Plan Cultures: Blood culture 11/02/2020 no growth today SARS CoV2 PCR positive SARS CoV2 IgG positive Assessment: 51 years old male without any significant medical history, admitted on 11/02/2020 secondary to a week history of generalized weakness, cough with yellowish sputum production, intermittent diarrhea, loss of smell and taste and shortness of breath: #Acute sepsis: Present on admission with fever, tachycardia, hypoxia; likely secondary to bilateral pneumonia. #Severe COVID pneumonia: patient with recent exposure to COVID-19. Inflammatory markers elevated, ferritin> 2000, D-dimer 811. #Acute hypoxia: Initial sats dropped to 91%, patient is now on 3 L #Transaminitis: Likely secondary to sepsis, possibly secondary to COVID-19. AST 368, ALT 526. LFTs level usually higher than typical Covid-related transaminitis. Improving. #Acute diarrhea: Possible secondary to COVID-19. Recommendations: -Continue Dexamethasone 6 mg IV/PO daily for 10 days D3 of 10 -Continue remdesivir D2 of 5 -Monitor inflammatory markers - ferritin, Ddimer, CRP, LDH ordered today -No indication for COVID convalescence plasma as pt is seropositive -Continue anticoagulation per System Protocol -Obtain right upper quadrant ultrasound in light of high LFTs- pending -Obtain venous ultrasound rule out DVTs - pending Dr. Ramires rounding this weekend All laboratory, cultures and imaging were reviewed. Will follow Hortencia Olsen MD Infectious Diseases Professor Of Marketing [facility] ([facility]) M [phone] O [phone] High Subjective Date of service: 11/05/20 Principal diagnosis: COVID Interval history: O2 sat dropped, no fever for 24-hour, patient is now on 3 L nasal cannula Objective - Exam Narrative Exam: Physical Exam: reviewed ED and hospitalist notes. Deferred to prevent COVID-19 transmission. - Constitutional Vitals: Vital Signs Temp Pulse Resp BP Pulse Ox 98.7 F 60 20 136/75 88 11/05/20 04:54 11/05/20 04:54 11/05/20 04:54 11/05/20 04:54 11/05/20 04:54 Temperature -Last 24 Hours Temperature 98.7 F Temperature 98.6 F Temperature 98.4 F - Labs CBC & Chem 7: 11/04/20 05:53 11/04/20 13:47 Labs: Abnormal lab results 11/04/20 Range/Units 13:47 Glucose 132 H (75-100) mg/dL
[2020-11-05 16:04] LABS: C-Reactive Protein 5.5 mg/dL (0.00-1.30)
--- NOTE | 2020-11-05 17:53 | Vascular Lab Report ---
DUPLEX DOPPLER LOWER EXTREMITY VEINS, BILATERAL INDICATION / CLINICAL INFORMATION: Covid, elevated D-dimer. TECHNIQUE: Duplex doppler imaging was performed through the veins of both lower extremities using venous debora farzana and other maneuvers. COMPARISON: None available. FINDINGS: RIGHT COMMON FEMORAL VEIN: Negative. RIGHT FEMORAL VEIN: Negative. RIGHT POPLITEAL VEIN: Negative. RIGHT CALF VEINS: Negative. LEFT COMMON FEMORAL VEIN: Negative. LEFT FEMORAL VEIN: Negative. LEFT POPLITEAL VEIN: Negative. LEFT CALF VEINS: Negative. ADDITIONAL FINDINGS: None. IMPRESSION: 1. No sonographic evidence for DVT in either lower extremity. Signer Name: Cedrick Croado MD Signed: 11/05/2020 5:48 PM Workstation Name: [id number]
[2020-11-05] MEDS: ENOXAPARIN 40 MG/0.4 ML INJ SUB-Q SCH (22:36)
[2020-11-05] MEDS: REMDESIVIR 100 MG in SODIUM CHLORIDE 0.9% 250ML 250 ML IV SCH (22:38)
[2020-11-05] MEDS: SODIUM CHLORIDE 0.9% 50 ML IVPB IV SCH (23:40)
[2020-11-06] MEDS ORDERED: DEXAMETHASONE 2 MG TAB PO SCH (10:00)
[2020-11-06] MEDS: CHOLECALCIFEROL (VIT D3) 5,000 UNIT TAB PO SCH (10:34)
[2020-11-06] MEDS: FAMOTIDINE 20 MG TAB PO SCH (10:34)
[2020-11-06] MEDS: guaiFENesin ER 600 MG TAB PO SCH (10:34)
[2020-11-06] MEDS: ASCORBIC ACID 500 MG TAB PO SCH (10:34)
[2020-11-06] MEDS: ZINC SULFATE 220 MG CAP PO SCH (10:35)
[2020-11-06 10:50] LABS: Alanine Aminotransferase 225 units/L (7-56)
--- NOTE | 2020-11-06 12:09 | Ultrasound Report ---
ULTRASOUND ABDOMEN, LIMITED (RIGHT UPPER QUADRANT) INDICATION / CLINICAL INFORMATION: elevated transaminases. COMPARISON: None available. FINDINGS: PANCREAS: Visualized portion shows no significant abnormality. LIVER: No significant abnormality. GALLBLADDER: No significant abnormality. BILE DUCTS: No significant abnormality. Common bile duct measures 3 mm. RIGHT KIDNEY: Right kidney measures 12.5 cm in length and is normal in echogenicity. FREE FLUID: None. ADDITIONAL FINDINGS: None. IMPRESSION: No significant sonographic abnormality of the right upper quadrant. Signer Name: Michele Schneider MD Signed: 11/06/2020 12:05 PM Workstation Name: [id number]
--- NOTE | 2020-11-06 12:37 | Progress Note ---
Assessment and Plan Assessment and plan: Acute respiratory failure with hypoxia from COVID 19 PNA continues to improve significantly expect discharge 1 to 2 days Continue oxygen supplementation as necessary Monitor closely -- COVID-19 virus infection Coronavirus PCR ordered and positive follow Inflammatory markers ID consult, remdesivir therapy Patient initiated on IV Decadron Positive for anticovid antibody - no need for convalescent plasma -- Bilateral pneumonia Antibiotics discontinued as procalcitonin normal treat for COVID 19 IV Decadron 8 mg every 24 hours will change to po -- Polycythemia due to fall in plasma volume Increase oral fluids -Continue Dexamethasone 6 mg IV/PO daily for 10 days -Continue remdesivir total 2 of 5 days -Monitor inflammatory markers - ferritin, Ddimer, CRP, LDH today -No indication for COVID convalescence plasma as pt is seropositive -Transaminases have returned to normal. -Obtain venous ultrasound rule out DVTs - pending 11/05/2020 -Patient is on IV dexamethasone, remdesivir day 2 out of 5, patient is on intranasal oxygen, ID is following and recommend to get inflammatory markers, venous Doppler and right upper quadrant ultrasound -Patient is doing well he is on 3 L of intranasal oxygen. 11/05/2012 -On dexamethasone and remdesivir day 3, patient is on 3 L of intranasal oxygen. Venous Doppler ultrasound is negative for DVT. LFTs are improving. Right upper upper quadrant ultrasound is pending. Patient will have OT evaluation and if he does not need oxygen he can go home. History Interval history: Patient was seen and evaluated at the bedside Patient is requiring 3 L of [place] oxygen Hospitalist Physical - Physical exam Narrative exam: Not in cardiopulmonary distress. The patient appeared well nourished and normally developed. Vital signs as documented. Head exam is unremarkable. No scleral icterus . Neck is without jugular venous distension, thyromegaly, or carotid bruits. Lungs are clear to auscultation. Cardiac exam reveals regular rate and Rhythm. Abdominal exam reveals normal bowel sounds, nontender, no organomegaly. Extremities are nonedematous and both femoral and pedal pulses are normal. ASSISTANT DRAFTER: Alert and oriented 3. No focal weakness. - Constitutional Vitals: Temp Pulse Resp BP Pulse Ox 98.1 F 60 20 137/84 94 11/06/20 04:31 11/06/20 04:31 11/06/20 04:31 11/06/20 04:31 11/06/20 04:31 General appearance: Present: mild distress Results - Labs CBC & Chem 7: 11/04/20 05:53 11/04/20 13:47 Labs: Laboratory Last Values WBC 6.4 K/mm3 (4.5-11.0) 11/04/20 05:53 RBC 4.62 M/mm3 (3.65-5.03) 11/04/20 05:53 Hgb 13.5 gm/dl (11.8-15.2) 11/04/20 05:53 Hct 40.3 % (35.5-45.6) D 11/04/20 05:53 MCV 87 fl (84-94) 11/04/20 05:53 MCH 29 pg (28-32) 11/04/20 05:53 MCHC 33 % (32-34) 11/04/20 05:53 RDW 13.7 % (13.2-15.2) 11/04/20 05:53 Plt Count 249 K/mm3 (140-440) 11/04/20 05:53 Lymph % (Auto) 10.2 % (13.4-35.0) L 11/04/20 05:53 [place] % (Auto) 5.1 % (0.0-7.3) 11/04/20 05:53 Eos % (Auto) 0.1 % (0.0-4.3) 11/04/20 05:53 Baso % (Auto) 0.2 % (0.0-1.8) 11/04/20 05:53 Lymph # (Auto) 0.6 K/mm3 (1.2-5.4) L 11/04/20 05:53 [place] # (Auto) 0.3 K/mm3 (0.0-0.8) 11/04/20 05:53 Eos # (Auto) 0.0 K/mm3 (0.0-0.4) 11/04/20 05:53 Baso # (Auto) 0.0 K/mm3 (0.0-0.1) 11/04/20 05:53 Seg Neutrophils % 84.4 % (40.0-70.0) H 11/04/20 05:53 Seg Neutrophils # 5.4 K/mm3 (1.8-7.7) 11/04/20 05:53 D-Dimer 580.73 ng/mlDDU (0-234) H 11/05/20 15:04 ABG pH 7.443 pH Units (7.350-7.450) 11/02/20 13:25 ABG pCO2 36.7 mm Hg 11/02/20 13:25 ABG pO2 98.7 mm Hg (80.0-90.0) H 11/02/20 13:25 ABG HCO3 24.5 mmol/L (20.0-26.0) 11/02/20 13:25 ABG O2 Saturation 97.6 % (95.0-99.0) 11/02/20 13:25 ABG O2 Content 20.8 (0.0-44) 11/02/20 13:25 ABG Base Excess 0.8 mmol/L (-2.0-3.0) 11/02/20 13:25 ABG Hemoglobin 15.4 gm/dl (14.0-18.0) 11/02/20 13:25 ABG Carboxyhemoglobin 1.4 % (0.0-5.0) 11/02/20 13:25 ABG Methemoglobin 0.7 % (0.0-1.5) 11/02/20 13:25 Oxyhemoglobin 95.6 % (95.0-99.0) 11/02/20 13:25 FiO2 32 % 11/02/20 13:25 Sodium 139 mmol/L (137-145) 11/04/20 13:47 Potassium 4.5 mmol/L (3.6-5.0) 11/04/20 13:47 Chloride 101.8 mmol/L (98-107) 11/04/20 13:47 Carbon Dioxide 29 mmol/L (22-30) 11/04/20 13:47 Anion Gap 13 mmol/L 11/04/20 13:47 BUN 12 mg/dL (9-20) 11/04/20 13:47 Creatinine 1.0 mg/dL (0.8-1.3) 11/04/20 13:47 Estimated GFR > 60 ml/min 11/04/20 13:47 BUN/Creatinine Ratio 12 % 11/04/20 13:47 Glucose 132 mg/dL (75-100) H 11/04/20 13:47 Hemoglobin A1c 5.9 % (4-6) 11/02/20 11:55 Lactic Acid 0.90 mmol/L (0.7-2.0) 11/02/20 14:35 Calcium 8.4 mg/dL (8.4-10.2) 11/04/20 13:47 Ferritin 1976.0 ng/mL (30.0-300.0) H 11/05/20 15:04 Total Bilirubin 0.50 mg/dL (0.1-1.2) 11/04/20 05:53 AST 76 units/L (5-40) H 11/06/20 10:13 ALT 225 units/L (7-56) H 11/06/20 10:13 Alkaline Phosphatase 107 units/L (35-129) 11/04/20 05:53 Lactate Dehydrogenase 381 units/L (91-180) H 11/05/20 15:04 C-Reactive Protein 5.50 mg/dL (0.00-1.30) H 11/05/20 15:04 Total Protein 6.9 g/dL (6.3-8.2) 11/04/20 05:53 Albumin 3.2 g/dL (3.9-5) L 11/04/20 05:53 Albumin/Globulin Ratio 0.9 % 11/04/20 05:53 Procalcitonin 0.27 ng/mL (<0.15) 11/02/20 11:55 Urine Color Pearl (Yellow) 11/02/20 Unknown Urine Turbidity Clear (Clear) 11/02/20 Unknown Urine pH 6.0 (5.0-7.0) 11/02/20 Unknown Ur Specific [place] 1.017 (1.003-1.030) 11/02/20 Unknown Urine Protein 100 mg/dl mg/dL (Negative) 11/02/20 Unknown Urine Glucose (UA) Neg mg/dL (Negative) 11/02/20 Unknown Urine Ketones Neg mg/dL (Negative) 11/02/20 Unknown Urine Blood Mod (Negative) 11/02/20 Unknown Urine Nitrite Neg (Negative) 11/02/20 Unknown Urine Bilirubin Neg (Negative) 11/02/20 Unknown Urine Urobilinogen 4.0 mg/dL (<2.0) 11/02/20 Unknown Ur Leukocyte Esterase Neg (Negative) 11/02/20 Unknown Urine WBC (Auto) 5.0 /HPF (0.0-6.0) 11/02/20 Unknown Urine RBC (Auto) 2.0 /HPF (0.0-6.0) 11/02/20 Unknown Urine Mucus Few /HPF 11/02/20 Unknown Coronavirus (PCR) Positive (Negative) A 11/03/20 Unknown SARS-CoV-2 IgG Ab Reactive (NonReactive) A 11/03/20 18:50 Microbiology: Microbiology 11/02/20 11:55 Peripheral/Venous Blood Culture - Preliminary NO GROWTH AFTER 72 HOURS 11/02/20 11:55 Peripheral/Venous Blood Culture - Preliminary NO GROWTH AFTER 72 HOURS [place]/IV: Voiding Method Toilet IV Catheter Type [Left] Peripheral IV Active Medications - Current Medications Current Medications: Generic Name Dose Route Start Last Admin Trade Name Freq PRN Reason Stop Dose Admin Acetaminophen 650 mg 11/03/20 01:29 11/03/20 17:37 Acetaminophen 325 Mg Tab PO 650 mg Q4H PRN Administration Pain MILD(1-3)/Fever >100.5/KRUGER Ascorbic Acid 1,000 mg 11/03/20 22:00 11/06/20 10:34 Ascorbic Acid 500 Mg Tab PO Not Given BID [facility] Cholecalciferol 5,000 unit 11/03/20 10:00 11/06/20 10:34 Cholecalciferol (Vit D3) 5,000 Unit Tab PO Not Given QDAY [facility] Dexamethasone 6 mg 11/06/20 10:00 11/06/20 10:34 Dexamethasone 2 Mg Tab PO 11/12/20 10:01 Not Given Q24HR [facility] Enoxaparin Sodium 40 mg 11/03/20 22:00 11/05/20 22:36 Enoxaparin 40 Mg/0.4 Ml Inj SUB-Q 40 mg QDAY@2200 [facility] Administration Protocol Famotidine 20 mg 11/03/20 10:00 11/06/20 10:34 Famotidine 20 Mg Tab PO Not Given BID [facility] Guaifenesin 600 mg 11/04/20 22:00 11/06/20 10:34 Guaifenesin Er 600 Mg Tab PO Not Given BID [facility]ANDAN Hydromorphone HCl 0.5 mg 11/03/20 01:29 Hydromorphone 1 Mg/1 Ml Inj IV Q3H PRN Pain , Severe (7-10) REMDESIVIR 100 mg/ Sodium 250 mls @ 500 mls/hr 11/04/20 21:00 11/05/20 22:38 Chloride IV 11/07/20 21:29 500 mls/hr Q24HR@2100 CHANDAN Administration Metoclopramide HCl 10 mg 11/03/20 01:29 Metoclopramide 10 Mg/2 Ml Inj IV Q6H PRN Nausea And Vomiting Ondansetron HCl 4 mg 11/03/20 01:29 Ondansetron 4 Mg/2 Ml Inj IV Q8H PRN Nausea And Vomiting Oxycodone/Acetaminophen 1 tab 11/03/20 01:29 Oxycodone /Acetaminophen 5-325mg Tab PO Q6H PRN Pain, Moderate (4-6) Sodium Chloride 10 ml 11/03/20 10:00 11/05/20 22:38 Sodium Chloride 0.9% 10 Ml Flush Syringe IV 10 ml BID CHANDAN Administration Sodium Chloride 10 ml 11/03/20 01:29 Sodium Chloride 0.9% 10 Ml Flush Syringe IV PRN PRN LINE FLUSH Sodium Chloride 50 ml 11/03/20 20:00 11/05/20 23:40 Sodium Chloride 0.9% 50 Ml Ivpb IV 11/06/20 21:01 50 ml Q24HR@2100 CHANDAN Administration Zinc Sulfate 220 mg 11/03/20 22:00 11/06/20 10:35 Zinc Sulfate 220 Mg Cap PO Not Given BID CHANDAN
[2020-11-06 14:23] VITALS: BP 136/84
--- NOTE | 2020-11-06 16:27 | Discharge Summary ---
Providers - Providers Date of Admission: 11/02/20 14:15 Date of discharge: 11/06/20 Attending physician: PANDA HILL MD 11/03/20 01:29 Consult to Physician [CONS] Urgent Comment: Consulting Provider: SAGAR FOWLER Physician Instructions: Reason For Exam: Possible Covid pneumonia Primary care physician: [employer] [employer] Hospitalization Reason for admission: acute respiratory failure, covid-19, bilateral pneumonia Condition: Stable Hospital course: 50-year-old male presents with chief complaint of weakness and shortness of breath for 1 week. Patient also has cough productive of yellow sputum. Fever is subjective. Denies nausea or vomiting. Has loss of taste and smell approximately 1 week ago but it is better now. Patient also has diarrhea for 2 days. Nearly resolved now. Exposure to coronavirus present. No significant past medical history. Patient was admitted to the floor and he was treated with remdesivir and Decadron. Patient get only 3 doses of Decadron and patient showed improvement and patient was saturating 93% after exercise and he is feeling okay and discharged home with Decadron to finish a total of 10 days. Patient advised to have monitor his O2 saturation and if it is decreasing below 90% patient advised to come back to the hospital. Patient was hemodynamically stable rest of discharge and did not require as the time of discharge. Disposition: [id number] TO HOME OR SELFCARE Time spent for discharge: 34 minutes - Discharge Diagnoses (1) COVID-19 Status: Acute (2) Acute respiratory failure with hypoxia Status: Acute (3) Bilateral pneumonia Status: Acute Qualifiers: Pneumonia type: due to unspecified organism (4) Hypoxia Status: Acute Core Measure Documentation - Palliative Care Palliative Care/ Comfort Measures: Not Applicable - Core Measures Any of the following diagnoses?: none Exam - Physical Exam Narrative exam: Not in cardiopulmonary distress. The patient appeared well nourished and normally developed. Vital signs as documented. Head exam is unremarkable. No scleral icterus . Neck is without jugular venous distension, thyromegaly, or carotid bruits. Lungs are clear to auscultation. Cardiac exam reveals regular rate and Rhythm. Abdominal exam reveals normal bowel sounds, nontender, no organomegaly. Extremities are nonedematous and both femoral and pedal pulses are normal. MOTORBOAT MECHANIC: Alert and oriented 3. No focal weakness. - Constitutional Vitals: Temp Pulse Resp BP Pulse Ox 98.9 F 66 20 136/84 92 11/06/20 12:54 11/06/20 12:54 11/06/20 12:54 11/06/20 12:54 11/06/20 12:54 Plan Activity: no restrictions Weight Bearing Status: Full Weight Bearing Diet: regular Follow up with: PRIMARY CARE, [Primary Care Provider] - 7 Days Prescriptions: Aspirin [Aspirin BABY CHEW TAB] 81 mg PO QDAY #30 tab.chew Dexamethasone [Decadron] 6 mg PO DAILY #6 tablet guaiFENesin ER [Mucinex ER] 600 mg PO BID #14 tablet Ascorbic Acid [Vitamin C] 1,000 mg PO BID #14 tablet Cholecalciferol (Vitamin D3) [Vitamin D3] 5,000 unit PO QDAY #7 tablet Zinc Sulfate 220 mg PO BID #14 capsule
== END 2020-11-06 19:30 | disposition home or self-care (01) | DRG 871 ==
LOC: ED 10:38 → 3A 14:15
PROVIDERS: ADMIT Internal Medicine; ATTEND Internal Medicine
PROC: 4A033R1 Measurement of Arterial Saturation, Peripheral, Percutaneous Approach (ICD-10-PCS; principal; 2020-11-02)
PROC: XW033E5 Introduction of Remdesivir Anti-infective into Peripheral Vein, Percutaneous Approach, New Technology Group 5 (ICD-10-PCS; 2020-11-03)
DX: A41.89 Other specified sepsis (principal); U07.1 COVID-19; J12.89 Other viral pneumonia; J96.01 Acute respiratory failure with hypoxia; D75.1 Secondary polycythemia; R74.01 Elevation of levels of liver transaminase levels; Z72.89 Other problems related to lifestyle
CPT/HCPCS: 36415; 71046; 76705; 80048; 80053; 81001; 82140; 82728; 82803; 83036; 83615; 84145; 84450; 84460; 85025; 85379; 86140; 87040; 93005; 93970; 94760; 96365; 96375; G0378; J0456; J0696; J1100; J1650; J7030; J7040; J7050; J8540; U0003